=== PATIENT | female | born 1985 | race Caucasian/White ===

== ENCOUNTER 2021-03-01 16:36 | Emergency (ER) | payer BC ==
[~2021-03-01] VITALS: Ht 167.6 cm; Wt 68.0 kg
== END 2021-03-01 17:49 | disposition home or self-care (01) ==
LOC: ED 16:36
DX: S61.213A Laceration without foreign body of left middle finger without damage to nail, initial encounter (principal); W26.0XXA Contact with knife, initial encounter
CPT/HCPCS: 12001; 99282-25